=== PATIENT | female | born 2000 | race African-American/Black ===

== ENCOUNTER 2019-03-19 13:43 | Emergency (ER) | payer SELFPAY ==
[2019-03-19 13:49] VITALS: BP 121/82
[2019-03-19] MEDS ORDERED: AZITHROMYCIN 250 MG TAB PO ONE (17:20)
[2019-03-19] MEDS ORDERED: METRONIDAZOLE 500 MG TABLET PO ONE (17:20)
[2019-03-19] MEDS ORDERED: cefTRIAXone 250 MG VIAL IM ONE (17:20)
== END 2019-03-19 19:45 | disposition home or self-care (01) ==
LOC: SANE 19:31
DX: T74.21XA Adult sexual abuse, confirmed, initial encounter (principal)
CPT/HCPCS: 36415; 86703; J0696; Q0144; 82040; 82247; 82310; 82374; 82435; 82565; 82947; 84075; 84132; 84155; 84295; 84450; 84460; 84520